=== PATIENT | female | born 1965 | race Caucasian/White ===

== ENCOUNTER 2017-12-02 21:58 | Inpatient (IN) | END 2017-12-09 18:20 | disposition home or self-care (01) | DRG 281 ==

== ENCOUNTER → 2017-12-02 | Day surgery (SDC) | END | disposition home or self-care (01) ==

== ENCOUNTER 2017-12-14 15:52 | Outpatient (CLI) | END 2017-12-14 16:57 | disposition home or self-care (01) ==